=== PATIENT | male | born 1970 | race Caucasian/White ===

== ENCOUNTER 2021-03-12 09:23 | Emergency (ER) | payer OTHER ==
[~2021-03-12] VITALS: Ht 180.3 cm; Wt 99.8 kg
--- NOTE | 2021-03-12 09:58 | NUR ---
Dr Murillo at the bedside for MSE.
[2021-03-12 10:08] VITALS: BP 127/89
--- NOTE | 2021-03-12 10:08 | NUR ---
Patient does not wish to proceed with medical care recommended by . (Dr Murillo). Patient given information related to possible complications, up to and including , which could occur as a result of leaving the hospital at this time. Patient verbalizes understanding of risks involved due to leaving against medical advice. Patient has signed AMA form.
== END 2021-03-12 10:09 | disposition left against medical advice (07) ==
LOC: ER 09:23
DX: Z85.51 Personal history of malignant neoplasm of bladder (principal); Z53.29 Procedure and treatment not carried out because of patient's decision for other reasons
CPT/HCPCS: A4663